=== PATIENT | female | born 1975 | race Caucasian/White ===

== ENCOUNTER 2023-02-15 01:38 | Emergency (ER) | payer OTHER ==
[2023-02-15 02:00] VITALS: RESP 18; TEMP 97.5; O2SAT 99
[2023-02-15 02:40] LABS: Absolute Neutrophil Ct (ANC) 6.32 x10^3/uL (1.4-6.9); BASOPHIL % 0.6 % (0.0-0.4); Basophil (Absolute #) 0.07 x10^3/uL (0-0.4); Eosinophil % 1.6 % (0.00-5.0); Eosinophil (Absolute #) 0.17 x10^3/uL (0-0.5); Hematocrit 37.6 % (35-47); IMMATURE GRAN # 0.04 x10^3u/L (0.00-0.03); IMMATURE GRAN % 0.4 % (0.00-0.4); Lymphocytes % 32.4 % (24.0-44.0); Mean Cell Volume 84.3 fL (78-100); Mean Corpuscular Hemoglobin 26.9 pg (26-32); Mean Corpuscular Hgb Concent. 31.9 g/dL (32-36); Mean Platelet Volume 10.8 fL (7.5-11.0); Monocyte (Absolute #) 0.71 x10^3/uL (0.0-1.3); Monocytes % 6.6 % (0.0-12.0); Neutrophil % 58.4 % (36.0-66.0); Platelet Count 380 x10^3/uL (150-450); Red Blood Count 4.46 x10^6/uL (4.1-5.4); Red Cell Distribution Width 15.4 % (11.5-14.0); White Blood Count 10.8 x10^3/uL (4.0-10.5)
--- NOTE | 2023-02-15 02:45 | ERPHSYRPT ---
- History of Present Illness Time Seen by Provider: 02/15/23 02:42 Historian: patient Exam Limitations: no limitations Patient Subjective Stated Complaint: cough, rib pain Triage Nursing Assessment: Pt ambulated into ER without diff, pt alert and o riented x4, pleasant and cooperative. Pt c/o left rib pain. Pt was coughing tonight in the car, coughed really hard and felt a pop, and has had rib pain ever since. Lungs clear ant and post, heart tones reg. Pt has bronchitis/pneumonia last week and was treated with a z-pack. Pt has a non-prod cough. Physician History: Patient is a 47-year-old female presents to our ED for evaluation of acute onset left-sided chest wall pain. Patient states she was recently diagnosed with bronchitis currently on a [place]. Patient was driving home. Patient advised any cough and now experiencing some left chest wall pain as well as mild shortness of breath. Pain is reproduced with deep inspiration. Unable to reproduce pain with palpation to chest wall. No associated nausea or vomiting. No diaphoresis. No trauma. Patient states she is otherwise healthy. No history of DVT PE. Patient voices no other complaints or concerns at this time. Patient declined pain medication Portions of this note were created with voice recognition technology. There may be grammatical, spelling, punctuation or sound alike errors Timing/Duration: today Activities at Onset: other (Driving her vehicle) Quality: aching Location: other (Left lateral rib adjacent to rib 678) Chest Pain Radiation: no radiation Severity of Pain-Max: moderate Severity of Pain-Current: mild (Patient declined pain medication.) Modifying Factors: Improves With: other (Deep inspiration) Associated Symptoms: other (Mild shortness of breath) Prior Chest Pain/Cardiac Workup: no prior chest pain Nitro Today/Relief: no nitro taken today Aspirin Treatment Today: no aspirin today Allergies/Adverse Reactions: No Known Drug Allergies Allergy (Unverified 02/15/23 02:04) Home Medications: No Reportable Medications [No Reported Medications] 02/15/23 [History] Hx Tetanus, Diphtheria Vaccination/Date Given: Yes Hx Influenza Vaccination/Date Given: No Hx Pneumococcal Vaccination/Date Given: No Travel Risk - International Travel Have you traveled outside of the country in past 3 weeks: No - Coronavirus Screening Are you exhibiting any of the following symptoms?: Yes Symptoms: Cough: New Onset, Shortness of Breath Close contact with a COVID-19 positive Pt in past 14-21 Days: No - Vaccine Status Have you recieved a Covid-19 vaccination: No - Review of Systems Constitutional: No Symptoms, No Fever, No Chills Eyes: No Symptoms Ears, Nose, & Throat: No Symptoms Respiratory: No Symptoms, No Cough, No Dyspnea Cardiac: No Symptoms, No Chest Pain, No Edema, No Syncope Abdominal/Gastrointestinal: No Symptoms, No Abdominal Pain, No Nausea, No Vomiting, No Diarrhea Genitourinary Symptoms: No Symptoms, No Dysuria Musculoskeletal: No Symptoms, No Back Pain, No Neck Pain Skin: No Symptoms, No Rash Neurological: No Symptoms, No Dizziness, No Focal Weakness, No Sensory Changes Psychological: No Symptoms Endocrine: No Symptoms Hematologic/Lymphatic: No Symptoms Immunological/Allergic: No Symptoms All Other Systems: Reviewed and Negative - Past Medical History Pertinent Past Medical History: Yes Neurological History: No Pertinent History ENT History: No Pertinent History Cardiac History: Angina, Hypertension Respiratory History: Bronchitis, Pneumonia Endocrine Medical History: No Pertinent History Musculoskeletal History: No Pertinent History GI Medical History: GERD History: No Pertinent History Psycho-Social History: No Pertinent History Female Reproductive Disorders: No Pertinent History - Past Surgical History Past Surgical History: No - Social History Smoking Status: Current every day smoker How long have you smoked: 30 yrs Exposure to second hand smoke: Yes Drug Use: none Patient Lives Alone: No - Female History Hx Last Menstrual Period: 02/14/23 Hx Now: No - Nursing Vital Signs Nursing Vital Signs: Initial Vital Signs Temperature 97.5 F 02/15/23 01:54 Pulse Rate 97 H 02/15/23 01:54 Respiratory Rate 18 02/15/23 01:54 Blood Pressure 210/107 02/15/23 01:54 O2 Sat by Pulse Oximetry 99 02/15/23 01:54 Pain Scale Pain Intensity 4 - Physical Exam General Appearance: no apparent distress, alert Eye Exam: PERRL/EOMI, eyes nml inspection Ears, Nose, Throat Exam: normal ENT inspection, moist mucous membranes Neck Exam: normal inspection, non-tender, supple, full range of motion Respiratory Exam: normal breath sounds, lungs clear, airway intact, No re spiratory distress Cardiovascular Exam: regular rate/rhythm, normal heart sounds, normal peripheral pulses Gastrointestinal/Abdomen Exam: soft, No tenderness, No mass Back Exam: normal inspection, No CVA tenderness, No vertebral tenderness Extremity Exam: normal inspection, normal range of motion Neurologic Exam: alert, oriented x 3, cooperative, normal mood/affect, sensation nml, No motor deficits Skin Exam: normal color, warm, dry SpO2 Interpretation: normal SpO2: 99 O2 Delivery: Room Air - Course Nursing assessment & vital signs reviewed: Yes EKG Interpreted by Me: RATE (75), Sinus Rhythm, NORMAL AXIS, NORMAL INTERVALS, NORMAL QRS - CT Exams Chest CT Interpretation: Tele-radiologist Report (Unremarkable CT angiography with no definite pulmonary embolism. No significant abnormality was seen in the present study. No rib fracture/lesion was seen in the present study.) Ordered Tests: Active Orders 24 hr Category Date Time Status CHEST WITH CONTRAST [CT] Stat Exams 02/15/23 02:53 Completed CBC W DIFF Stat Lab 02/15/23 02:37 Completed CMP Stat Lab 02/15/23 02:37 Completed TROPONIN Q4H Lab 02/15/23 02:41 Completed TROPONIN Q4H Lab 02/15/23 06:45 Ordered TROPONIN Q4H Lab 02/15/23 10:45 Ordered Medication Summary Discontinued Medications Generic Name Dose Route Start Last Admin Trade Name Freq PRN Reason Stop Dose Admin Potassium Chloride 40 meq 02/15/23 04:06 02/15/23 04:17 Potassium Chloride Tab 10 Meq Tab PO 02/15/23 04:07 40 meq STAT ONE Administration Potassium Chloride Confirm 02/15/23 04:16 Potassium Chloride Tab 10 Meq Tab Administered 02/15/23 04:17 Dose 40 meq PO .STK-MED ONE Lab/Rad Data: Laboratory Result Diagrams 02/15/23 02:37 02/15/23 02:37 Laboratory Results 02/15/23 02/15/23 02/15/23 Range/Units 02:41 02:37 02:37 WBC 10.8 H (4.0-10.5) x10^3/uL RBC 4.46 (4.1-5.4) x10^6/uL Hgb 12.0 (12.0-16.0) g/dL Hct 37.6 (35-47) % MCV 84.3 (78-100) fL MCH 26.9 (26-32) pg MCHC 31.9 L (32-36) g/dL RDW 15.4 H (11.5-14.0) % Plt Count 380 (150-450) x10^3/uL MPV 10.8 (7.5-11.0) fL Gran % 58.4 (36.0-66.0) % Immature Gran % (Auto) 0.4 (0.00-0.4) % Nucleat RBC Rel Count 0.0 (0.00-0.1) % Eos # (Auto) 0.17 (0-0.5) x10^3/uL Immature Gran # (Auto) 0.04 H (0.00-0.03) x10^3u/L Absolute Lymphs (auto) 3.50 (1.0-4.6) x10^3/uL Absolute Monos (auto) 0.71 (0.0-1.3) x10^3/uL Absolute Nucleated RBC 0.00 (0.00-0.01) x10^3u/L Lymphocytes % 32.4 (24.0-44.0) % Monocytes % 6.6 (0.0-12.0) % Eosinophils % 1.6 (0.00-5.0) % Basophils % 0.6 (0.0-0.4) % Absolute Granulocytes 6.32 (1.4-6.9) x10^3/uL Basophils # 0.07 (0-0.4) x10^3/uL Sodium 137 (137-145) mmol/L Potassium 3.3 L (3.5-5.1) mmol/L Chloride 104 (98-107) mmol/L Carbon Dioxide 23 (22-30) mmol/L Anion Gap 13.9 (5-15) MEQ/L BUN 10 (7-17) mg/dL Creatinine 0.77 (0.52-1.04) mg/dL Estimated GFR > 60.0 ML/MIN Glucose 99 (74-106) mg/dL Calcium 8.5 (8.4-10.2) mg/dL Total Bilirubin 0.50 (0.2-1.3) mg/dL AST 28 (14-36) U/L ALT 23 (0-35) U/L Alkaline Phosphatase 89 (38-126) U/L Troponin I < 0.012 (0.000-0.034) ng/mL Serum Total Protein 7.4 (6.3-8.2) g/dL Albumin 4.1 (3.5-5.0) g/dL - Progress Progress: improved Air Movement: good Progress Note: Patient 47-year-old female presents to our ED with left sided rib pain. Pain is pleuritic in nature. We were unable to reproduce pain with palpation. CTA chest negative for PE. CBC CMP reveals mild hypokalemia. Oral potassium replacement administered. Troponin negative. Patient is ready for discharge. Patient agrees to follow-up with her primary care doctor within 48 hours for evaluation. Portions of this note were created with voice recognition technology. There may be grammatical, spelling, punctuation or sound alike errors Complexity of problems addressed is moderate acute complicated. No critical care time Complexity of data reviewed and analyzed is moderate. Test ordered test reviewed. Clinical correlation made between the observed test findings and history and physical exam. Mild hypokalemia observed. A oral potassium replacement administered. Troponin negative. EKG reveals normal sinus rhythm. Risk of complication and or risk of morbidity/mortality of patient management is moderate. A prescription for Toradol forwarded to patient's pharmacy. Patient agrees to follow-up with her primary care doctor within 48 hours for evaluation. Plan of care established for shared decision making. Time to discharge patient is approximately 15 minutes. No social determinants of health present to impede follow-up. Patient voices no other complaints or concerns at this time. Portions of this note were created with voice recognition technology. There may be grammatical, spelling, punctuation or sound alike errors 02/15/23 04:10 Blood Culture(s) Obtained: No Antibiotics given: No Counseled pt/family regarding: lab results, diagnosis, need for follow-up, rad results - Departure Departure Disposition: Home Clinical Impression: Pleuritic chest pain, Hypokalemia Condition: Stable Critical Care Time: No Referrals: DOCTOR,NO FAMILY [Primary Care Provider] - Follow up/PCP as directed SHAMA IVY MD [ACTIVE STAFF] - Follow up/PCP as directed Additional Instructions: Discharge/Care Plan TURNER URBANO was seen on 02/15/23 in the Emergency Room. The patient was counseled regarding Diagnosis,Lab results, Imaging studies, need for follow up and when to return to the Emergency Room. Prescriptions given: Discharge Note I have spoken with the patient and/or caregivers. I have explained the patient's condition, diagnosis and treatment plan based on the information available to me at this time. I have answered the patient's and/or caregiver's questions and addressed any concerns. The patient and/or caregivers have as good understanding of the patient's diagnosis, condition and treatment plan as can be expected at this point. The vital signs have been stable. The patient's condition is stable and appropriate for discharge from the emergency department. The patient will pursue further outpatient evaluation with the primary care physician or other designated or consulting physician as outlined in the d ischarge instructions. The patient and/or caregivers are agreeable to this plan of care and follow-up instructions have been explained in detail. The patient and/or caregivers have received these instruction. The patient/and or caregivers are aware that any significant change in condition or worsening of symptoms should prompt an immediate return to this or the closest emergency department or call 911.
[2023-02-15 02:54] LABS: ALBUMIN 4.1 g/dL (3.5-5.0); ALKALINE PHOSPHATASE 89 U/L (38-126); ANION GAP 13.9 MEQ/L (5-15); BLOOD UREA NITROGEN 10 mg/dL (7-17); CHLORIDE 104 mmol/L (98-107); Calcium 8.5 mg/dL (8.4-10.2); Carbon Dioxide 23 mmol/L (22-30); Creatinine 1 0.77 mg/dL (0.52-1.04); EST GLOMERULAR FILTRATION RATE > 60.0 ML/MIN; Glucose 99 mg/dL (74-106); Potassium 3.3 mmol/L (3.5-5.1); SGOT/AST 28 U/L (14-36); SGPT/ALT 23 U/L (0-35); SODIUM 137 mmol/L (137-145); Total Protein 7.4 g/dL (6.3-8.2)
--- NOTE | 2023-02-15 03:45 | XRAY ---
CLINICAL HISTORY:rib pain- sob pe ji COMPARISON:None TECHNIQUE:Contiguous 3.[address] angiographic images of the chest were acquired after administration of intravenous contrast (80 cc of Isovue-370). Coronal and sagittal reconstructions were obtained. FINDINGS: The main pulmonary segment, right and left main branches show normal diameter and homogeneous contrast enhancement with no evidence of pulmonary embolism or thrombosis. Normal contrast opacification of proximal and visualized distal branches of lobar pulmonary arteries. No pulmonary infarcts or pleural collection. Suboptimal evaluation due to extensive breathing motion artifact. The note is made of a perifissural calcified subcentimetric nodule involving the right lower lobe. A subcentimetric calcific focus is also seen involving the right lower lobe. The study shows normal broncho vascular anatomy. No obvious septal, interlobular thickening, ground glass haziness, or honeycombing is seen. The trachea, main bronchi, and segmental bronchi are normal. No narrowing or abnormal dilatation of the airways is seen. A few sub centimetric mediastinal lymph nodes are noted. (? Significance). The superior mediastinum and the major great vessels are normal in size. The pleura and chest wall are normal. No pleural effusion is seen. The domes of the diaphragm and visualized liver appear normal. The cardiac silhouette is normal in size and shape. Early atherosclerotic changes are seen involving the thoracic aorta. IMPRESSION: Unremarkable CT angiography with no definite pulmonary embolism. No significant abnormality was seen in the present study. No rib fracture/lesion was seen in the present study. Electronically Signed by: Amanda Trujillo MD. (02/15/2023 02:45:31 IMPORT AND EXPORT CLERK)
[2023-02-15] MEDS ORDERED: Klor Con PO ONE ×2 (04:06→04:16)
[2023-02-15 04:45] VITALS: BP 182/96; PULSE 89
== END 2023-02-15 04:30 | disposition home or self-care (01) ==
LOC: ED 01:38
DX: R07.81 Pleurodynia (principal); E87.6 Hypokalemia; I10 Essential (primary) hypertension; Z28.310 Unvaccinated for COVID-19; Z72.0 Tobacco use
CPT/HCPCS: 36000; 36415; 71260; 80053; 84484; 85025; 93005; 99284; A9270-GY

== ENCOUNTER 2023-11-17 19:24 | Emergency (ER) | payer MEDICAID, OTHER ==
[2023-11-17 19:36] VITALS: BP 181/91; PULSE 105; RESP 18; TEMP 98; O2SAT 97
--- NOTE | 2023-11-17 19:41 | ERPHSYRPT ---
- History of Present Illness Time Seen by Provider: 11/17/23 19:41 Source: patient Exam Limitations: no limitations Patient Subjective Stated Complaint: toothache and L sided facial swelling that started this morning Triage Nursing Assessment: pt ambulatory to bed by self with steady gait, pt alert and oriented x3, skin pwd, pt presents with L sided facial swelling that started this morning which patient believes is from her tooth, she has had a toothache on the L side for "awhile.", pt requests antibiotics and does not want anything for pain. Physician History: The patient presents with a toothache and facial swelling that started overnight. She reports that she went to sleep with a toothache and woke up with the swelling. She also reports that her jaws were hurting badly the night before. She has taken a couple of penicillin tablets that she had at home. She has not developed a fever. She also reports difficulty opening her mouth due to the swelling. She has a history of wisdom teeth growing in sideways, causing pressure on other teeth. She has avoided dental care due to fear of the dentist. Timing/Duration: gradual onset Severity: severe ENT Location: facial, dental Prearrival Treatment: no prearrival treatment Associated Symptoms: facial pain/swelling, jaw pain, swollen glands, tooth pain, No ear pain (R), No ear pain (L), No fever, No chills, No drooling, No neck pain, No difficulty swallowing, No voice change Allergies/Adverse Reactions: No Known Drug Allergies Allergy (Verified 11/17/23 19:28) Hx Tetanus, Diphtheria Vaccination/Date Given: Yes Hx Influenza Vaccination/Date Given: No Hx Pneumococcal Vaccination/Date Given: No Travel Risk - International Travel Have you traveled outside of the country in past 3 weeks: No - Emerging Infectious Disease Are you exhibiting symptoms associated with any current EIDs: No - Review of Systems All Other Systems: Reviewed and Negative - Past Medical History Pertinent Past Medical History: Yes Neurological History: No Pertinent History ENT History: No Pertinent History Cardiac History: Angina, Hypertension Respiratory History: Bronchitis, Pneumonia Endocrine Medical History: No Pertinent History Musculoskeletal History: No Pertinent History GI Medical History: GERD History: No Pertinent History Psycho-Social History: No Pertinent History Female Reproductive Disorders: No Pertinent History - Past Surgical History Past Surgical History: No - Female History Hx Last Menstrual Period: 5/11/24 Hx Now: No - Social History Smoking Status: Current every day smoker How long have you smoked: 30 yrs Exposure to second hand smoke: Yes Drug Use: none Patient Lives Alone: No - Nursing Vital Signs Nursing Vital Signs: Initial Vital Signs Temperature 98 F 11/17/23 19:30 Pulse Rate 105 H 11/17/23 19:30 Respiratory Rate 18 11/17/23 19:30 Blood Pressure 181/91 11/17/23 19:30 O2 Sat by Pulse Oximetry 97 11/17/23 19:30 Pain Scale Pain Intensity 7 - Physical Exam General Appearance: no apparent distress Eye Exam: bilateral eye: normal inspection, PERRL, EOMI Ear Exam: bilateral ear: auricle normal, canal normal, tenderness Nasal Exam: normal inspection Throat Exam: dental tenderness (Infected teeth with abscess 16 and 17, parotid swelling), mandibular swelling, No foreign body, No pharynx swelling, No pharynx tenderness, No tongue swollen, No tonsillar exudate, No tonsillar swelling, No uvula swelling Neck Exam: tender lateral Cardiovascular/Respiratory Exam: regular rate/rhythm Skin Exam: normal color, warm, dry, No rash SpO2 Interpretation: normal SpO2: 97 O2 Delivery: Room Air Ordered Tests: Medication Summary Discontinued Medications Generic Name Dose Route Start Last Admin Trade Name Freq PRN Reason Stop Dose Admin Amoxicillin/Clavulanate Potassium 875 mg 11/17/23 19:49 11/17/23 19:57 Amox Tr/Potassium Clavulanate 875 Mg Tablet PO 11/17/23 19:50 875 mg STAT ONE Administration Amoxicillin/Clavulanate Potassium Confirm 11/17/23 19:56 Amox Tr/Potassium Clavulanate 875 Mg Tablet Administered 11/17/23 19:57 Dose 875 mg .ROUTE .STK-MED ONE - Progress Progress: unchanged Counseled pt/family regarding: need for follow-up Medical Desision Making - Diagnostic Testing Diagnostic test were ordered, analyzed, and reviewed by me: No - Risk of complications The pt has a mod risk of morbidity or mortality based on: Need for prescription drug management - Departure Departure Disposition: Home Clinical Impression: Dental abscess, Parotid gland enlargement Condition: Good Critical Care Time: No Referrals: DOCTOR,NO FAMILY [Primary Care Provider] - Follow up/PCP as directed Instructions: Tooth Abscess (DC) Prescriptions: Amox Tr/Potass Clav. 875 mg [Augmentin 875-125 Tablet] 875 mg PO BID 14 Days #28 tablet
[2023-11-17] MEDS ORDERED: Augmentin 875-125 Tablet ONE (19:56)
[2023-11-17] MEDS: Augmentin 875-125 Tablet PO ONE (19:57)
== END 2023-11-17 20:07 | disposition home or self-care (01) ==
LOC: ED 19:24
DX: K04.7 Periapical abscess without sinus (principal); K11.1 Hypertrophy of salivary gland; K08.89 Other specified disorders of teeth and supporting structures; I10 Essential (primary) hypertension; Z72.0 Tobacco use
CPT/HCPCS: 99281; A9270-GY